=== PATIENT | male | born 1950 | race Caucasian/White ===

== ENCOUNTER → 2016-03-19 | Outpatient (CLI) | payer MEDICARE ==
[~2016-03-19] MED LIST: ACHD5005 PO; ASPI-587 PO; DICL75TA2 PO; GLUC-113 PO; LOVA20TA2 PO; LVT.025T PO; RANI150C11 PO; TRAM50TA2 PO
--- NOTE | 2016-03-19 09:12 | Diagnostic Imaging Report ---
INDICATION: Followup thyroid cancer. COMPARISON: 02/25/2015. DISCUSSION: Sonographic evaluation anterior neck was performed. Status post bilateral thyroidectomy. No abnormal mass or fluid collection within either thyroidectomy bed. No abnormal anterior lymph nodes are identified. IMPRESSION: 1. Status post bilateral thyroidectomy. No adverse interval change. Dictated by: Dictated on workstation # [id number]
== END ==
LOC: RAD 08:39
PROVIDERS: ATTEND Internal Medicine Endocrinology, Diabetes & Metabolism
DX: C73 Malignant neoplasm of thyroid gland (principal); E89.0 Postprocedural hypothyroidism
CPT/HCPCS: 76536

== ENCOUNTER → 2017-03-19 | Outpatient (CLI) | payer MEDICARE ==
--- NOTE | 2017-03-19 10:16 | Diagnostic Imaging Report ---
INDICATION: Thyroid cancer. Comparison is made with soft tissue neck ultrasound from 03/19/2016. Postsurgical changes of total thyroidectomy are noted. No definite residual thyroid tissue is seen. No residual or recurrent mass is detected. No definite lymphadenopathy is seen. IMPRESSION: Stable neck ultrasound. No residual or recurrent mass is detected. Dictated by: Dictated on workstation # [id number]
== END ==
LOC: RAD 08:36
PROVIDERS: ATTEND Internal Medicine Endocrinology, Diabetes & Metabolism
DX: Z08 Encounter for follow-up examination after completed treatment for malignant neoplasm (principal); E89.0 Postprocedural hypothyroidism; Z85.850 Personal history of malignant neoplasm of thyroid
CPT/HCPCS: 76536

== ENCOUNTER → 2018-03-18 | Outpatient (CLI) | payer MEDICARE ==
--- NOTE | 2018-03-18 11:03 | Diagnostic Imaging Report ---
Clinical indication: Patient with papillary carcinoma of the thyroid gland. Patient had thyroidectomy in 2014. Exam: Ultrasound of neck soft tissue and thyroid region. Comparison: Ultrasound of the neck soft tissue/thyroid region dated 03/19/2017. Findings and impression: Ultrasound evaluation of the neck soft tissue/thyroid region shows no evidence of developing mass or lymphadenopathy. Thyroidectomy changes are seen with no significant residual thyroid tissue. Dictated by: Dictated on workstation # [id number]
== END ==
LOC: RAD 08:47
PROVIDERS: ATTEND Internal Medicine Endocrinology, Diabetes & Metabolism
DX: C73 Malignant neoplasm of thyroid gland (principal); Z98.890 Other specified postprocedural states
CPT/HCPCS: 76536

== ENCOUNTER → 2019-03-29 | Outpatient (CLI) | payer MEDICARE ==
--- NOTE | 2019-03-29 15:18 | Diagnostic Imaging Report ---
INDICATION: History of thyroid cancer. Status post thyroidectomy. COMPARISON: 03/18/2018. TECHNIQUE: Multi-projectional sonographic imaging of the neck was performed. FINDINGS: Status post thyroidectomy. No features of residual thyroid tissue. No mass or lymphadenopathy has developed in the interim. IMPRESSION: No features of recurrent thyroid cancer. Dictated by: Dictated on workstation # [id number]
== END ==
LOC: RAD 12:20
PROVIDERS: ATTEND Internal Medicine Endocrinology, Diabetes & Metabolism
DX: C73 Malignant neoplasm of thyroid gland (principal)
CPT/HCPCS: 76536

== ENCOUNTER → 2020-01-15 | Outpatient (CLI) | payer MEDICARE ==
--- NOTE | 2020-01-15 13:49 | Diagnostic Imaging Report ---
PROCEDURE: US Thyroid. TECHNIQUE: Multiple real-time grayscale images were obtained of the thyroid in various projections. INDICATION: History of thyroidectomy. Followup. COMPARISON: 03/29/2019. FINDINGS: Images of the surgical bed from prior thyroidectomy demonstrates no evidence of residual or recurrent thyroid tissue. No soft tissue masses or fluid collections are seen. No evidence of cervical lymphadenopathy in the visualized neck. IMPRESSION: 1. Stable appearance of the neck status post thyroidectomy. No evidence of residual or recurrent thyroid tissue. No lymphadenopathy. Dictated by: Dictated on workstation # [id number]
== END ==
LOC: RAD 09:03
PROVIDERS: ATTEND Internal Medicine Endocrinology, Diabetes & Metabolism
DX: C73 Malignant neoplasm of thyroid gland (principal); Z90.09 Acquired absence of other part of head and neck
CPT/HCPCS: 76536